=== PATIENT | male | born 1945 | race Caucasian/White ===

== ENCOUNTER 2017-10-03 13:04 | Emergency (ER) | payer OTHER ==
--- NOTE | 2017-10-03 13:32 | EDPHY ---
HPI/HX/ROS/PE/MDM Narrative: CHIEF COMPLAINT: Possible TIA HPI: This patient is a 71 year old male arriving with his family following an episode of neurologic deficits, now primarily resolved, onset one hour prior to arrival around 12:30pm. He is visiting from [place], and drove to [place] yesterday. He has history of autonomic nervous system failure with postural hypotension as well as ocular migraines. Two weeks ago, he had an ocular migraine associated with difficulty speaking and thinking which seemed more progressive than prior episodes. These symptoms completely resolved. Today, one hour ago, he was having difficulty speaking and his daughter noted right-sided facial droop. He felt his tongue was unable to move properly. He was unable to fasten his seatbelt due to left-sided hand numbness. Now, his symptoms have largely resolved. He is experiencing returning paresthesias in his left hand, and feels these are worsening throughout our discussion. He feels his tongue is "thick", but is able to speak well. He denies history of prior TIA or strokes. He is not anticoagulated, but does take daily Aspirin 81mg. No prior head imaging. He denies headache, chest pain, shortness of breath , abdominal pain, fever, or other associated symptoms. REVIEW OF SYSTEMS: Aside from elements discussed in the HPI, a comprehensive 10-point review of systems was reviewed and is negative. PMH: Postural hypotension. Aortic graft placed due to asymptomatic aortic aneurysm. SOCIAL HISTORY: Visiting from [place]. Originally from [place]. Retired radiologist. Daughter at bedside. PHYSICAL EXAM: General:Patient is alert, in no acute distress. ENT: No facial droop. Eyes are normal to inspection. ENT inspection normal. Neck: Normal inspection. Full range of motion. Respiratory:No respiratory distress. Breath sounds normal bilaterally. Cardiovascular: Regular rate and rhythm. Strong peripheral pulses. Normal cap refill. Abdomen:The abdomen is nontender to palpation. There are no peritoneal signs. There are normal bowel sounds. Back: Normal to inspection. No tenderness to palpation. Skin: Normal color. No rash. Warm and dry. Extremities: Normal appearance. Full range of motion. Neuro: Oriented x3. Normal motor function. Normal sensory function. Mild dysmetria of left hand. No pronator drift. ED Course: 71 y/o male presents following an episode of difficulty speaking, right-sided facial droop, and left-sided upper extremity numbness and paresthesias. His symptoms have mostly resolved, but he continues to complain of left hand paresthesias and a "thick" tongue sensation. Exam reveals mild dysmetria of the left hand. Plan for CT head, CTA head and neck, consult with [facility]. Plan for EKG and labs including CBC, BMP, coag. 13:30 Called stroke alert due to patient's remaining symptoms. 13:[address] Randall, neurologist at [facility]. He will evaluate the patient via telemedicine. 14:[address] Randall. The patient's symptoms have resolved and he is not a TPA candidate at this time. Suspect TIA. Dr. Randall is comfortable with observation and outpatient followup for this patient. Plan to order MRI brain. Laboratory studies largely unremarkable. PT and INR within normal limits. EKG was ordered and interpreted by myself. Sinus rhythm, rate 84. Please see [employer] system for official reading. 14:[address] Alvarado, radiologist. CT head, CTA head and neck negative for acute processes. 14:47 Reassessed patient. He is currently asymptomatic. 15:[address] Fischer, radiologist. MRI brain negative for acute processes , see full report below. 16:15 Reassessed patient. Discussed results. I offered admission for continued observation and evaluation, but the patient refuses at this time. Plan to discharge home in good condition. He understands he needs to follow up with neurology upon his return to [place]. He will continue to take daily aspirin. Strict return precautions discussed. 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 The patient and his family are comfortable with this plan. - Data Points Imaging Results: Imaging Impressions Head CT 10/03/17 13:33 Impression: Nothing acute on this noncontrasted scan. Patient now proceeds to CT angiography. Findings and recommendations discussed with Tereso Dolan MD at 1435 hours , 10/03/2017. Preliminary report was given to creative technologist at 1342. CT angiography of the head and neck followed. Final report concurs with initial preliminary interpretation. Head CTA 10/03/17 13:33 Impression: Normal. Findings and recommendations discussed with Tereso Dolan MD at 1435 hour, 10/03/2017. Final report concurs with initial preliminary interpretation. Neck CTA 10/03/17 13:33 Impression: Nothing acute. Note: All stenoses are calculated using NASCET criteria. Findings and recommendations discussed with Tereso Dolan MD, at 1435 hours , 10/03/2017. Final report concurs with initial preliminary interpretation. Brain MRI 10/03/17 14:47 Impression: 1. Moderate periventricular and deep hemispheric white matter change that can be seen with small vessel ischemic disease. No evidence for acute infarct. 2. Generalized cerebral atrophy. 3. Mild chronic sinus related change. Results called and discussed with Tereso Dolan MD, at 1552 hours 03 October 2017. Imaging: Discussed imaging studies w/ amusement machine mechanic Radiologist Laboratory Results: Laboratory Results 10/03/17 13:13 10/03/17 13:13 10/03/17 10/03/17 10/03/17 13:13 13:13 13:13 WBC 7.59 10^3/uL 10^3/uL (3.80-9.50) RBC 3.08 10^6/uL L 10^6/uL (4.40-6.38) Hgb 11.4 g/dL L g/dL (13.7-17.5) POC Hgb Hct 32.0 % L % (40.0-51.0) POC Hct MCV 103.9 fL H fL (81.5-99.8) MCH 37.0 pg H pg (27.9-34.1) MCHC 35.6 g/dL g/dL (32.4-36.7) RDW 13.1 % % (11.5-15.2) Plt Count 187 10^3/uL 10^3/uL (150-400) MPV 8.1 fL L fL (8.7-11.7) Neut % (Auto) 43.2 % % (39.3-74.2) Lymph % (Auto) 38.6 % % (15.0-45.0) Cassia % (Auto) 12.9 % % (4.5-13.0) Eos % (Auto) 3.6 % % (0.6-7.6) Baso % (Auto) 0.9 % % (0.3-1.7) Nucleat RBC Rel Count 0.0 % % (0.0-0.2) Absolute Neuts (auto) 3.28 10^3/uL 10^3/uL (1.70-6.50) Absolute Lymphs (auto) 2.93 10^3/uL 10^3/uL (1.00-3.00) Absolute Monos (auto) 0.98 10^3/uL H 10^3/uL (0.30-0.80) Absolute Eos (auto) 0.27 10^3/uL 10^3/uL (0.03-0.40) Absolute Basos (auto) 0.07 10^3/uL 10^3/uL (0.02-0.10) Absolute Nucleated RBC 0.00 10^3/uL 10^3/uL (0-0.01) Immature Gran % 0.8 % % (0.0-1.1) Immature Gran # 0.06 10^3/uL 10^3/uL (0.00-0.10) PT 14.1 SEC SEC (12.0-15.0) INR 1.10 (0.83-1.16) POC Sodium Sodium 135 mEq/L mEq/L (134-144) POC Potassium Potassium 3.9 mEq/L mEq/L (3.5-5.2) POC Chloride Chloride 100 mEq/L mEq/L (97-110) Carbon Dioxide 24 mEq/l mEq/l (22-31) Anion Gap 11 mEq/L mEq/L (8-16) POC BUN BUN 13 mg/dL mg/dL (7-23) Creatinine 1.1 mg/dL mg/dL (0.7-1.3) POC Creatinine Estimated GFR > 60 Glucose 123 mg/dL H mg/dL (70-100) POC Glucose Calcium 9.3 mg/dL mg/dL (8.5-10.4) 10/03/17 13:09 WBC RBC Hgb POC Hgb 11.9 gm/dL L gm/dL (13.7-17.5) Hct POC Hct 35 % L % (40-51) MCV MCH MCHC RDW Plt Count MPV Neut % (Auto) Lymph % (Auto) Cassia % (Auto) Eos % (Auto) Baso % (Auto) Nucleat RBC Rel Count Absolute Neuts (auto) Absolute Lymphs (auto) Absolute Monos (auto) Absolute Eos (auto) Absolute Basos (auto) Absolute Nucleated RBC Immature Gran % Immature Gran # PT INR POC Sodium 137 mEq/L mEq/L (134-144) Sodium POC Potassium 3.8 mEq/L mEq/L (3.3-5.0) Potassium POC Chloride 99 mEq/L mEq/L (97-110) Chloride Carbon Dioxide Anion Gap POC BUN 12 mg/dL mg/dL (7-23) BUN Creatinine POC Creatinine 1.2 mg/dL mg/dL (0.7-1.3) Estimated GFR Glucose POC Glucose 128 mg/dL H mg/dL (70-100) Calcium Point of Care Test Results: 10/03/17 13:09 POC Sodium 137 POC Potassium 3.8 POC Chloride 99 POC BUN 12 POC Creatinine 1.2 POC Glucose 128 H General Time Seen by Provider: 10/03/17 13:20 Initial Vital Signs: Initial Vital Signs Temperature (C) 37.3 C 10/03/17 13:19 Heart Rate 93 10/03/17 13:19 Respiratory Rate 18 10/03/17 13:19 Blood Pressure 163/126 H 10/03/17 13:19 O2 Sat (%) 92 10/03/17 13:19 O2 Delivery Mode Room Air Allergies/Adverse Reactions: No Known Allergies Allergy (Verified 10/03/17 13:13) Home Medications: Medication Instructions Recorded Allopurinol 10/03/17 Aspirin 81mg (*) 10/03/17 Levothyroxine 10/03/17 Omeprazole 10/03/17 Pravastatin Sodium 10/03/17 Zyoptin Eye Drops 10/03/17 Departure - Departure Disposition: Home, Routine, Self-Care Clinical Impression: TIA (transient ischemic attack) Qualifiers: Transient cerebral ischemia type: other Qualified Code(s): G45.8 - Other transient cerebral ischemic attacks and related syndromes Condition: Good Instructions: Transient Ischemic Attack (ED) Additional Instructions: 1. Follow up with a neurologist back home in 1-2 weeks. We have also referred you to a local neurologist general merchandise salesperson should you remain in the [place] area for any significant amount of time. 2. Continue taking daily aspirin. 3. Return to the nearest emergency department immediately for any recurrence of symptoms including difficulty speaking, numbness or paresthesias in your extremities, confusion, facial droop, or any other concerns or worsening of condition. Referrals: CESAR,KAREEM [Other] - As per Instructions Donta Perez MD [Medical Doctor] - As per Instructions Report Scribed for: Tereso Dolan Report Scribed by: Gretta Mcdonnell Date of Report: 10/03/17 Time of Report: 13:33 Physician Review and Approval Statement: Portions of this note were transcribed by an ED scribe. I personally performed the history, physical exam, and medical decision making; and confirm the accuracy of the information in the transcribed note.
[2017-10-03 13:40] LABS: % IMMATURE GRANULYOCYTES 0.8 % (0.0-1.1); ABSOLUTE IMMATURE GRANULOCYTES 0.06 10^3/uL (0.00-0.10); ADD DIFF? NO; ADD MORPH? NO; ADD SCAN? NO; ATYPICAL LYMPHOCYTE FLAG 0 (0-99); FRAGMENT RBC FLAG 0 (0-99); HEMOGLOBIN 11.4 g/dL (13.7-17.5); LEFT SHIFT FLG 0 (0-99); LIPEMIA HEMOLYSIS FLAG 90 (0-99); MEAN CELL HEMOGLOBIN CONCENTR. 35.6 g/dL (32.4-36.7); MEAN CELL VOLUME 103.9 fL (81.5-99.8); MEAN PLATELET VOLUME 8.1 fL (8.7-11.7); PLATELET CLUMPS FLAG 0 (0-99); PLATELET COUNT 187 10^3/uL (150-400); RED BLOOD CELL COUNT 3.08 10^6/uL (4.40-6.38); RED CELL DISTRIBUTION WIDTH 13.1 % (11.5-15.2)
[2017-10-03 13:43] LABS: INR 1.1 (0.83-1.16); PROTIME(PATIENT) 14.1 SEC (12.0-15.0)
[2017-10-03 13:49] LABS: ANION GAP 11 mEq/L (8-16); CALCIUM 9.3 mg/dL (8.5-10.4); CARBON DIOXIDE 24 mEq/l (22-31); CHLORIDE 100 mEq/L (97-110); CREATININE 1.1 mg/dL (0.7-1.3); GLOMERULAR FILTRATION RATE > 60; GLUCOSE 123 mg/dL (70-100); POTASSIUM 3.9 mEq/L (3.5-5.2); SODIUM 135 mEq/L (134-144)
[2017-10-03] MEDS ORDERED: IOPAMIDOL (ISOVUE-300) 100 ML BTL ONE (13:49)
--- NOTE | 2017-10-03 14:01 | PDCONSULT ---
Embroidery Assistant Note: [place] [facility] Note Demographics Consult Type Acute Stroke First Name Shashank Last Name Misael Date of 1945 Age: 71 Gender Male Referring Provider Dr Dolan Time of initial page (): 10/03/2017 13:41 Time of return call ( Time): 10/03/2017 13:41 Time Ready to Initiate Telemed Consult ( Time): 10/03/2017 13:41 HPI Additional History (Free Text): 71 year old man with onset of right face and left hand symptoms today. [facility]-- Past Medical History: ocular migraine, postural hypotension, Past Surgical History aortic graft (percutaneous) Social History: Radiologist Medications: aspirin Exam Vitals: vital signs reviewed Mental Status: awake, alert + oriented x 3, follows commands Language: normal speech, no aphasia, no dysarthria Cranial Nerves extra ocular movements intact, no facial droop, normal facial sensation Motor: normal strength, normal bulk, no drift Sensory: normal sensation Cerebellar: normal cerebellar NIHSS Time (): 10/03/2017 13:44 LOC 1a: 0 = Alert; keenly responsive LOC 1b: 0 = Answers both questions correctly LOC Commands: 0 = Performs both tasks correctly Best Gaze: 0 = Normal Visual: 0 = No visual loss Facial Palsy 0 = Normal symmetrical movements Motor Arm L: 0 = No drift; limb holds 90 (or 45) degrees for full 10 seconds Motor Arm R: 0 = No drift; limb holds 90 (or 45) degrees for full 10 seconds Motor Leg L: 0 = No drift; leg holds 30-degree position for full 5 seconds Motor Leg R: 0 = No drift; leg holds 30-degree position for full 5 seconds Limb Ataxia 0 = Absent Sensory: 0 = Normal; no sensory loss Best Language: 0 = No aphasia; normal Dysarthria: 0 = Normal Extinction + Inattention: 0 = No abnormality NIHSS: [address]: no bleed Assessment: TIA, Focal neurological symptoms. Crossed findings may suggest small penetrating artery of brainstem. Plan Lytic/Intervention: NOT IV or IA candidate Labs HgbA1c, Lipid Panel Diagnostic test echocardiogram with bubble Other permissive HTN, telemetry monitoring, I have discussed my recommendations with the referring provider Disposition observation
--- NOTE | 2017-10-03 14:13 | CPEKG ---
Heart Rate: 84 RR Interval: 714 P-R Interval: 172 QRSD Interval: 96 QT Interval: 392 QTC Interval: 464 P Kent: 58 QRS Kent: 7 T Wave Kent: 41 EKG Severity - ABNORMAL ECG - EKG Impression: SINUS RHYTHM EKG Impression: PROBABLE INFERIOR INFARCT, OLD Electronically Signed By: Christos Garcia 06-Oct-2017 17:50:07
[2017-10-03 15:06] VITALS: O2SAT 95
[2017-10-03 16:22] VITALS: BP 175/93; PULSE 85; RESP 18; TEMP 98.4
== END 2017-10-03 16:32 | disposition home or self-care (01) ==
DX: G45.8 Other transient cerebral ischemic attacks and related syndromes (principal); Z79.82 Long term (current) use of aspirin
CPT/HCPCS: 70450; 70496; 70498; 70551; 93005; 99285; Q9967; 82947-QW